=== PATIENT | female | born 1950 | race Caucasian/White ===

== ENCOUNTER 2018-09-20 08:36 | Outpatient (CLI) | payer MEDICARE, OTHER ==
--- NOTE | 2018-09-22 08:48 | MRI ---
MRI LEFT WRIST WITHOUT IV CONTRAST: HISTORY: Left wrist pain since a fall months ago. Fracture of upper limb, late effect. COMPARISON: Prior plain film examinations of 08/18/2018 and 07/14/2018. FINDINGS: The exam is somewhat limited technically. There is considerable motion artifact, which lowers the se nsitivity of this study. No evidence of abnormal marrow signal to suggest acute fracture. There is evidence for thickening and an irregular appearance of the abductor pollicis longus tendon with a mod erate amount of fluid within the tendon sheath, evidence for associated tenosynovitis. There is mild thickening and increased signal of the extensor carpi ulnaris tendon. The triangular fibrocartilage complex is very indistinct and somewhat thin centrally, and there may well be a central perforation. Definitive evaluation is limited because of motion artifact. There is a small amount of fluid with in the distal radial ulnar joint. The scapholunate ligament appears intact. IMPRESSION: 1. Abnormal appearing abductor pollicis longus tendon with associated prominent amount of fluid with in the tendon sheath and some associated tendinopathy and/or interstitial tearing of the tendon. 2. Very indistinct triangular fibrocartilage complex region, particularly the central region. Certa inly cannot exclude a central perforation. 3. No evidence for fracture, acute stress injury, or avascular necrosis. 4. Mild tendinopathy of the extensor carpi ulnaris tendon. POS: OFF
== END 2018-09-20 08:37 | disposition home or self-care (01) ==
LOC: SCSMRI 08:36
PROVIDERS: ATTEND Orthopaedic Surgery Hand Surgery
DX: S42.309 Unspecified fracture of shaft of humerus, unspecified arm (principal); M25.532 Pain in left wrist; M77.8 Other enthesopathies, not elsewhere classified

== ENCOUNTER 2018-10-13 00:50 | Outpatient (CLI) | payer MEDICARE, OTHER ==
[2018-10-13 16:16] LABS: #Basophils 0.1 thou/uL (0.0-0.2); #Eosinphils 0.1 thou/uL (0.0-0.7); #Lymphocytes 2.2 thou/uL (1.20-3.40); #Monocytes 0.5 thou/uL (0.11-0.59); #Neutrophils 5.1 thou/uL (1.40-6.50); %Basophils 0.8 % (0.0-1.0); %Eosinophils 1.7 % (0.0-10.0); %Lymphocytes 27.1 % (21.0-51.0); %Monocytes 6.2 % (0.0-10.0); %Neutrophils 64.2 % (42.0-75.0); Bilirubin Negative (Negative); Blood, Urine Negative (Negative); Clarity CLEAR (Clear); Glucose, Urine (Dipstick) Negative (Negative); Hemoglobin 12.5 g/dL (12.0-16.0); Leukocyte Negative (Negative); Mean Corpuscular HGB CONC 33.1 g/dL (32.0-36.0); Mean Corpuscular Hemoglobin 30.5 pg (27.0-31.0); Mean Corpuscular Volume 92.2 fL (78.0-98.0); Mean Platelet Volume 7.1 fL (7.4-10.4); Nitrite Negative (Negative); Platelet Count 293 thou/uL (130-400); Protein, Urine (Dipstick) Negative (Neg-Trace); RBC Distribution Width 12.8 % (11.5-14.5); Red Blood Cell (RBC) Count 4.11 mill/uL (4.20-5.40); Specific Gravity, Urine 1.017 (1.002-1.036); Urobilinogen 0.2 mg/dL (0.2-1.0)
[2018-10-13 16:18] LABS: Bacteria/HPF None Seen HPF (None Seen); Hyaline Casts/LPF 0-3 HYALINE CAST LPF (0-3 Hyaline); RBC/HPF 0-3 HPF (0-3); Squamous Epithelial 0-3 HPF (0-3); WBC/HPF None Seen HPF (0-3)
[2018-10-13 16:45] LABS: Anion Gap 12 mmol/L (10-20); BUN (Urea Nitrogen) 16 mg/dL (9.8-20.1); Calc. Creatinine Clearance 0 mL/min (70-130); Calcium 9.3 mg/dL (7.8-10.44); Carbon Dioxide 26 mmol/L (23-31); Chloride 109 mmol/L (98-107); Estimated GFR-MDRD 67; Glucose 99 mg/dL (80-115); Potassium 3.7 mmol/L (3.5-5.1); Sodium 143 mmol/L (136-145)
--- NOTE | 2018-10-15 21:20 | EKG ---
Test Reason : Blood Pressure : / mmHG Vent. Rate : 090 BPM Atrial Rate : 090 BPM P-R Int : 146 ms QRS Dur : 074 ms QT Int : 366 ms P-R-T Axes : 045 035 029 degrees QTc Int : 447 ms Normal sinus rhythm Normal ECG When compared with ECG of 15-JUL-2006 18:03, No significant change was found Confirmed by Brenda GONZALEZ ([id number]) on 10/15/2018 9:20:22 PM Referred By: JOSEPH Confirmed By:Brenda GONZALEZ
== END 2018-10-13 00:51 | disposition home or self-care (01) ==
LOC: LABBT 00:50
PROVIDERS: ATTEND Orthopaedic Surgery Hand Surgery
DX: Z01.818 Encounter for other preprocedural examination (principal); S69.82XA Other specified injuries of left wrist, hand and finger(s), initial encounter
CPT/HCPCS: 80048; 81001; 85025; 93005; 93010

== ENCOUNTER 2018-10-22 14:04 | Day surgery (SDC) | payer MEDICARE, OTHER ==
[2018-10-13 15:11] VITALS: BMI 26.9
[2018-10-22] MEDS ORDERED: PROPOFOL 200 MG/20 ML VIAL ONE (16:08)
[2018-10-22] MEDS ORDERED: Dexamethasone 20 MG/5 ML VIAL ONE (16:08)
[2018-10-22] MEDS ORDERED: Ondansetron PF 4 MG/2 ML Vial ONE (16:08)
[2018-10-22] MEDS ORDERED: ePHEDrine 50 MG/ML VIAL ONE (16:08)
[2018-10-22] MEDS ORDERED: Lidocaine 1% PF 5 ML VIAL ONE (16:08)
[2018-10-22] MEDS ORDERED: Midazolam HCl 2 mg/2 ml Vial ONE (18:49)
[2018-10-22] MEDS ORDERED: Fentanyl 100 MCG/2 ML VIAL ONE ×3 (18:53→21:27)
[2018-10-22] MEDS ORDERED: Bupivacaine PF 0.5% 30 ML VIAL ONE (19:05)
[2018-10-22] MEDS ORDERED: Bacitracin Zinc Ointment 30 gm TUBE ONE (19:05)
[2018-10-22] MEDS ORDERED: EPINEPHrine 1 MG/ML AMP ONE (19:05)
[2018-10-22] MEDS ORDERED: Betamet Acet/Betamet Na Ph 30 MG/5 ML VIAL ONE (20:26)
[2018-10-22] MEDS ORDERED: Ketorolac Tromethamine 30 MG/ML VIAL ONE (21:27)
[2018-10-22] MEDS ORDERED: HYDROcodone/Acetaminophen 5/325 mg Tablet ONE (21:56)
--- NOTE | 2018-10-26 08:57 | OP ---
DATE OF PROCEDURE: 10/22/2018 PREOPERATIVE DIAGNOSES: 1. Right radiocarpal synovitis, left wrist. 2. De Quervain tenosynovitis. 3. First dorsal compartment compressive vaginitis. POSTOPERATIVE DIAGNOSES: 1. Right radiocarpal synovitis, left wrist. 2. De Quervain tenosynovitis. 3. First dorsal compartment compressive vaginitis. PROCEDURES PERFORMED: 1. Right first dorsal compartment release. 2. Right extensor tenosynovectomy, radical, within the same compartment. 3. Right wrist arthroscopic tenosynovectomy and synovectomy. SPECIMEN: Tenosynovium, right first dorsal compartment. BLOOD LOSS: Less than 10 mL. TOURNIQUET TIME: 8 minutes. DESCRIPTION OF PROCEDURE: After successful general endotracheal anesthesia, the limb was prepped and draped. We then gave the outline of the incision in the area defined by both the chart/records, the history and physical, and consent. We then exsanguinated the limb, inflated tourniquet to 250 mmHg pressure, outlined a 2-cm zigzag incision and then injected it with 10 mL of 0.5% Marcaine. We waited for 3 minutes and then made a zigzag incision, carried through the skin and subcutaneous tissue. We protected the superficial radial nerve branches. The 1st compartment was very tight and there was bulging synovitis coming from this compartment where there were three sleeves of the abductor. We then did a radical extensor tenosynovectomy in all sleeves of the abductor, the extensor pollicis brevis from the separate compartment with Donahue blade leaving adequate palmar remnant of the retinaculum to prevent subluxation. We then deflated the tourniquet, obtained hemostasis, injected with a drip technique injection of a 3 mL Celestone and closed the wound with interrupted 4-0 nylon. The wrist was placed in overhead traction with appropriate support and Arthrex arm saavedra for arthroscopy outlined in 3, 4, 6U and 6R portals. We then placed 5 mL of normal saline through the 3/4 portal, , put the scope inside, did a panoramic view. Panoramic view revealed marked synovitis in the radiocarpal joint. We then switched the ulnocarpal joint with excellent outflow viewing from the 6R portal and here we also saw the synovitis. The intercarpal ligament, triangular fibrocartilage, the radial articular surface, ulnar articular surface, the lunate capitate, hamate, scaphoid, triquetrum surface and interosseous ligaments were all intact. We performed synovectomy alternating between the 6U and 3/4 portal for both visualization and working. Then, removed the arthroscope, placed 2 mL of Celestone in the joint itself through the 3/4 portal. We closed the portals with interrupted 4-0 nylon. Injected them with Marcaine and the patient left the operating room in a bulky dressing with no evidence of anesthetic or operative complication. Sample of tenosynovium was sent to the lab. Job ID: [id number]
== END 2018-10-22 22:20 | disposition home or self-care (01) ==
LOC: SDC 14:04
PROVIDERS: ATTEND Orthopaedic Surgery Hand Surgery
PROC: 0RBP4ZZ Excision of Left Wrist Joint, Percutaneous Endoscopic Approach (ICD-10-PCS; principal; 2018-10-22)
PROC: 0LB60ZZ Excision of Left Lower Arm and Wrist Tendon, Open Approach (ICD-10-PCS; 2018-10-22)
PROC: 0LN60ZZ Release Left Lower Arm and Wrist Tendon, Open Approach (ICD-10-PCS; 2018-10-22)
DX: M67.432 Ganglion, left wrist (principal); M65.4 Radial styloid tenosynovitis [de Quervain]; M65.88 Other synovitis and tenosynovitis, other site; F32.9 Major depressive disorder, single episode, unspecified; I73.00 Raynaud's syndrome without gangrene; Z79.899 Other long term (current) drug therapy
CPT/HCPCS: 88304; J0171; J0690; J0702; J1100; J1885; J2001; J2250; J2405; J2704; J3010; J3490; S0020